=== PATIENT | male | born 1995 | race Two or more races ===

== ENCOUNTER → 2024-03-23 | Emergency (ER) | payer MEDICAID ==
[~2024-03-23] VITALS: Ht 182.9 cm; Wt 102.1 kg
[~2024-03-23] MED LIST: ACET-2605 PO; IBUP-1955 PO; IBUPROFEN 400 MG TABLET ONE
[2024-03-23 18:05] VITALS: BP 145/81; TEMP 98.6; O2SAT 99
[2024-03-23] MEDS: IBUPROFEN 400 MG TABLET PO ONE (18:16)
== END | disposition home or self-care (01) ==
LOC: ER 18:15
DX: S90.31XA Contusion of right foot, initial encounter (principal); Z88.8 Allergy status to other drugs, medicaments and biological substances; W18.30XA Fall on same level, unspecified, initial encounter; Y93.89 Activity, other specified; Y92.89 Other specified places as the place of occurrence of the external cause; Y99.8 Other external cause status
CPT/HCPCS: 73630-TC